=== PATIENT | female | born 1980 | race Caucasian/White ===

== ENCOUNTER 2024-04-19 13:30 | Outpatient (REF) | payer BC, SELFPAY | END 2024-04-19 13:31 | disposition home or self-care (01) | LOC: LBN 13:30 | PROVIDERS: Visit Provider Nurse Practitioner Family | DX: N39.0 Urinary tract infection, site not specified (principal); R82.89 Other abnormal findings on cytological and histological examination of urine | CPT/HCPCS: 87077; 87086; 87186 ==